=== PATIENT | female | born 1970 | race Caucasian/White ===

== ENCOUNTER 2019-04-05 16:23 | Emergency (ER) | payer MEDICAID ==
[~2019-04-05] VITALS: Ht 157.5 cm; Wt 59.0 kg
--- NOTE | 2019-04-05 16:28 | NUR ---
CAME IN FOR DIZZINESS, NAUSEA AND VOMITING X 1 HOUR [employer]. ON DIALYSIS ([facility]), FINISHED DIALYSIS TODAY. TO ER BED 9, HOOKED TO MONITOR, CHANGED TO HOSP GOWN, PROVIDED W WARM BLANKET. AWAITING MD BOBO.
--- NOTE | 2019-04-05 16:55 | NUR ---
DR CASTRO AT BEDSIDE
[2019-04-05] MEDS ORDERED: MECLIZINE HCL 12.5 MG TABLET ONE (16:59)
[2019-04-05] MEDS ORDERED: MECLIZINE HCL 12.5 MG TABLET PO ONE (17:00)
[2019-04-05 17:05] LABS: BASOPHILS % (AUTO) 0.4 % (0.0-2.0); EOSINOPHILS % (AUTO) 0.2 % (0.0-6.0); HEMATOCRIT 42 % (33-45); LYMPHOCYTES # (AUTO) 0.5 /CMM (0.8-4.8); MEAN CORPUSCULAR HGB CONC 33 g/dl (31.0-36.0); MEAN CORPUSCULAR VOLUME 99 fL (82-100); MONOCYTES # (AUTO) 0.3 /CMM (0.1-1.30); MONOCYTES % (AUTO) 3.4 % (2.0-12.0); NEUTROPHILS # (AUTO) 7.7 /CMM (1.8-8.9); PLATELET COUNT (AUTO) 119 /CMM (150-450); RED BLOOD CELL COUNT(AUTO) 4.28 MIL/uL (4.0-5.2); WHITE BLOOD COUNT (AUTO) 8.6 K/uL (4.3-11.0)
[2019-04-05 17:22] LABS: CREATININE 7.4 mg/dL (0.6-1.3); POTASSIUM 5.1 mmol/L (3.5-5.1)
--- NOTE | 2019-04-05 18:20 | NUR ---
PATIENT ABLE TO AMBULATE W STEADY GAIT, MADE AWARE
[2019-04-05 18:31] VITALS: BP 119/80
--- NOTE | 2019-04-05 18:31 | NUR ---
IV removed. Catheter intact and site benign. Pressure and 4x4 applied to site. No bleeding noted.Patient discharged to home in stable condition. Written and verbal after care instructions given. Patient verbalizes understanding of instruction.
== END 2019-04-05 18:32 | disposition home or self-care (01) ==
LOC: ER 16:35
DX: R42 Dizziness and giddiness (principal); N18.6 End stage renal disease; Z99.2 Dependence on renal dialysis
CPT/HCPCS: 36415; 80048; 85025; 93005; 99284; J8597